=== PATIENT | male | born 1990 | race Caucasian/White ===

== ENCOUNTER 2019-04-27 20:23 | Emergency (ER) | payer OTHER ==
--- NOTE | 2019-04-27 20:32 | EDM.PDOC ---
ED HPI GENERAL MEDICAL PROBLEM - General Chief Complaint: Lower Extremity Injury/Pain Stated Complaint: LEFT LEG SPLINTER SWELLING AND INFECTED Time Seen by Provider: 04/27/19 20:32 - History of Present Illness INITIAL COMMENTS - FREE TEXT/NARRATIVE: 28-year-old male presents the emergency room with a infected splinter or something in his leg. Last night he had an infected hair on his left gustafson his tried to manipulate it and thought she saw metallic foreign body and there but could not get it out over the course of the day today he has had increased swelling redness and discomfort in this area. Left Leg Pain Score (Numeric/FACES): 4 - Related Data Allergies Allergy/AdvReac Type Severity Reaction Status Date / Time No Known Allergies Allergy Verified 04/27/19 20:32 Home Meds: Home Meds . [No Known Home Meds] 04/27/19 [History] Review of Systems - Review of Systems Review Of Systems: See Below Constitutional: Reports: No Symptoms Respiratory: Reports: No Symptoms Cardiovascular: Reports: No Symptoms GI/Abdominal: Reports: No Symptoms ED EXAM, GENERAL - Physical Exam Exam: See Below Exam Limited By: No Limitations General Appearance: Alert, No Apparent Distress Respiratory/Chest: No Respiratory Distress, Lungs Clear, Normal Breath Sounds Cardiovascular: Regular Rate, Rhythm, No Edema, No Murmur Extremities: Other (Nation of his left lower leg shows an area of redness mild swelling most consistent with a mild cellulitis the central area where the infected hair was no obvious foreign bodies are identified.) Course - Vital Signs Last Recorded V/S: Last Vital Signs Temp 36.2 C 04/27/19 20:28 Pulse 64 04/27/19 20:28 Resp 18 04/27/19 20:28 BP 141/96 H 04/27/19 20:28 Pulse Ox 98 04/27/19 20:28 - Orders/Labs/Meds Orders: Active Orders 24 hr Category Date Time Status Tibia Fibula Lt [CR] Stat Exams 04/27/19 20:48 Taken - Re-Assessments/Exams Free Text/Narrative Re-Assessment/Exam: 04/27/19 21:52 X-ray examination does not show any foreign bodies metallic or otherwise able to be seen on x-ray. Under magnified light I reviewed the situation cannot find a foreign body there is a hair in the tissue this was removed. Patient is started on Keflex 500 mg 4 times daily from the machine out in the waiting room #30 Departure - Departure Time of Disposition: 21:46 Disposition: DC/Tfer to SNF 03 Clinical Impression: Cellulitis - Discharge Information Instructions: Cellulitis, Adult, [id number] Referrals: PCP,None [Primary Care Provider] - Forms: ED Department Discharge Additional Instructions: Return to the emergency room with any questions problems or worsening symptoms. Given a prescription for cephalexin, this is an antibiotic, from the machine in the waiting room. Take 1 pill 4 times daily until all gone. Follow-up at the Hospital clinic ([phone]) or return to the emergency room in a couple of days if not improving sooner if getting worse Sepsis Event Note - Evaluation Sepsis Screening Result: No Definite Risk - Focused Exam Vital Signs: Vital Signs Temp Pulse Resp BP Pulse Ox 04/27/19 20:28 36.2 C 64 18 141/96 H 98 Date Exam was Performed: 04/27/19 Time Exam was Performed: 21:49 - My Orders Last 24 Hours: My Active Orders 04/27/19 20:48 Tibia Fibula Lt [CR] Stat - Assessment/Plan Last 24 Hours: My Active Orders 04/27/19 20:48 Tibia Fibula Lt [CR] Stat
--- NOTE | 2019-04-28 10:38 | CR ---
Left tibia and fibula: AP and lateral views of the left tibia and fibula were obtained. Comparison: No previous study. No fracture or other bony abnormality is seen. No discrete opaque foreign body is seen within the soft tissues. Impression: 1. Nothing acute seen on two-view left tibia and fibula study. Diagnostic code #1 This report was dictated in Mountain Standard Time
== END 2019-04-27 22:10 | disposition home or self-care (01) ==
LOC: JD.ED 20:23
DX: L03.116 Cellulitis of left lower limb (principal)
CPT/HCPCS: 73590-26-LT; 73590-LT; 99283; 99284-25

== ENCOUNTER 2020-07-11 14:15 | Emergency (ER) | payer BC, OTHER ==
[2020-07-11] MEDS ORDERED: Sodium Chloride 0.9% 10 ML Syringe FLUSH PRN (15:04)
[2020-07-11] MEDS ORDERED: Hyoscyamine 0.125 MG Tab.SL SL ONE (15:06)
--- NOTE | 2020-07-11 15:20 | EDM.PDOC ---
ED HPI GENERAL MEDICAL PROBLEM - General Chief Complaint: Abdominal Pain Stated Complaint: UPPER ABDOMINAL PAIN/NUMBNESS ALL OVER Time Seen by Provider: 07/11/20 14:58 Source of Information: Reports: Patient, RN Notes Reviewed History Limitations: Reports: No Limitations - History of Present Illness INITIAL COMMENTS - FREE TEXT/NARRATIVE: Pt is a 29 year old male presenting to the ER with c/o acute onset of RUQ abdominal/ rt lower rib pain and tingling of his fingers and lips. He also reports that when the pain was at its worst, he had difficulty swallowing and felt SOB. He states "It's not that I couldnt swallow, I just had to make an effort to swallow". He denies the feeling of swelling in his throat. Initially, the tingling in his fingers was on both sides, but it is now only on his left. Symptoms began about 2.5 hours ago and have been recurring intermittently since that time. He had eaten a small amount of macaroni and cheese approximately 30 minutes prior to the onset of symptoms. Right Upper Chest Pain Score (Numeric/FACES): 6 - Related Data Allergies Allergy/AdvReac Type Severity Reaction Status Date / Time No Known Allergies Allergy Verified 07/11/20 14:33 Home Meds: Home Meds Hyoscyamine Sulfate [Levsin-Sl] 0.25 mg SL Q6H PRN #10 tab.subl 07/11/20 [Rx] Past Medical History - Past Health History Medical/Surgical History: Denies Medical/Surgical History - Infectious Disease History Infectious Disease History: Reports: Chicken Pox - Past Surgical History HEENT Surgical History: Reports: Tonsillectomy Social & Family History - Family History Family Medical History: No Pertinent Family History Endocrine/Metabolic: Reports: Diabetes, type II - Tobacco Use Tobacco Use Status *Q: Current Every Day Tobacco User Years of Tobacco use: 19 Packs/Tins Daily: 1 Used Tobacco, but Quit: No Second Hand Smoke Exposure: Yes - Caffeine Use Caffeine Use: Reports: Coffee, Energy Drinks - Alcohol Use Days Per Week of Alcohol Use: 7 Number of Drinks Per Day: 1 Total Drinks Per Week: 7 - Recreational Drug Use Recreational Drug Use: No ED ROS GENERAL - Review of Systems Review Of Systems: See Below Constitutional: Reports: No Symptoms. Denies: Fever, Chills, Weakness HEENT: Reports: No Symptoms Respiratory: Reports: Shortness of Breath. Denies: Cough Cardiovascular: Reports: No Symptoms Endocrine: Reports: No Symptoms GI/Abdominal: Reports: Abdominal Pain (RUQ). Denies: Diarrhea, Nausea, Vomiting : Reports: No Symptoms Musculoskeletal: Reports: No Symptoms Skin: Reports: No Symptoms Neurological: Reports: Tingling (fingers and lips) Psychiatric: Reports: No Symptoms Hematologic/Lymphatic: Reports: No Symptoms Immunologic: Reports: No Symptoms ED EXAM, GI/ABD - Physical Exam Exam: See Below Exam Limited By: No Limitations General Appearance: Alert, WD/WN, No Apparent Distress Respiratory/Chest: No Respiratory Distress, Lungs Clear, Normal Breath Sounds, No Accessory Muscle Use, Chest Non-Tender Cardiovascular: Normal Peripheral Pulses, Regular Rate, Rhythm, No Edema, No Gallop, No JVD, No Murmur, No Rub GI/Abdominal Exam: Normal Bowel Sounds, Soft, No Organomegaly, No Distention, No Abnormal Bruit, No Mass, Pelvis Stable, Tender (RUQ). No: Guarding, Rigid Neurological: Alert, Oriented, CN II-XII Intact, Normal Cognition, Normal Gait, Normal Reflexes, No Motor/Sensory Deficits Psychiatric: Normal Affect, Normal Mood Skin Exam: Warm, Dry, Intact, Normal Color, No Rash #1 Interpretation EKG Date: 07/11/20 Time: 15:30 Rhythm: NSR [place]: Normal P-Wave: Present QRS: Normal ST-T: Normal QT: Normal Course - Vital Signs Last Recorded V/S: Last Vital Signs Temp 97.9 F 07/11/20 14:29 Pulse 72 07/11/20 14:29 Resp 20 07/11/20 14:29 BP 143/85 H 07/11/20 14:29 Pulse Ox 98 07/11/20 14:29 - Orders/Labs/Meds Orders: Active Orders 24 hr Category Date Time Status Peripheral IV Insertion Adult [OM.PC] Stat Oth 07/11/20 15:03 Ordered Labs: Laboratory Tests 07/11/20 07/11/20 07/11/20 Range/Units 14:45 14:45 14:45 WBC 5.92 (4.23-9.07) K/mm3 RBC 4.83 (4.63-6.08) M/mm3 Hgb 14.6 (13.7-17.5) gm/dl Hct 43.7 (40.1-51.0) % MCV 90.5 (79.0-92.2) fl MCH 30.2 (25.7-32.2) pg MCHC 33.4 (32.2-35.5) g/dl RDW Std Deviation 40.2 (35.1-43.9) fL Plt Count 312 (163-337) K/mm3 MPV 9.5 (9.4-12.3) fl Neut % (Auto) 67.2 (34.0-67.9) % Lymph % (Auto) 20.9 L (21.8-53.1) % Ellis % (Auto) 10.6 (5.3-12.2) % Eos % (Auto) 0.8 (0.8-7.0) Baso % (Auto) 0.3 (0.1-1.2) % Neut # (Auto) 3.97 (1.78-5.38) K/mm3 Lymph # (Auto) 1.24 L (1.32-3.57) K/mm3 Ellis # (Auto) 0.63 (0.30-0.82) K/mm3 Eos # (Auto) 0.05 (0.04-0.54) K/mm3 Baso # (Auto) 0.02 (0.01-0.08) K/mm3 D-Dimer, Quantitative < 0.19 L (0.19-0.50) mg/L Sodium 140 (136-145) mEq/L Potassium 4.2 (3.5-5.1) mEq/L Chloride 101 (98-107) mEq/L Carbon Dioxide 28 (21-32) mEq/L Anion Gap 15.2 H (5-15) BUN 11 (7-18) mg/dL Creatinine 1.0 (0.7-1.3) mg/dL Est Cr Clr Drug Dosing 96.33 mL/min Estimated GFR (MDRD) > 60 (>60) mL/min BUN/Creatinine Ratio 11.0 L (14-18) Glucose 94 (74-106) mg/dL Calcium 9.2 (8.5-10.1) mg/dL Total Bilirubin 1.0 (0.2-1.0) mg/dL AST 37 (15-37) U/L ALT 32 (16-63) U/L Alkaline Phosphatase 72 (46-116) U/L Troponin I < 0.017 (0.00-0.056) ng/mL C-Reactive Protein < 0.2 (<1.0) mg/dL Total Protein 7.9 (6.4-8.2) g/dl Albumin 4.5 (3.4-5.0) g/dl Globulin 3.4 gm/dL Albumin/Globulin Ratio 1.3 (1-2) Lipase 117 (73-393) U/L Meds: Medications Discontinued Medications Generic Name Dose Route Start Last Admin Trade Name Freq PRN Reason Stop Dose Admin Hyoscyamine 0.25 mg 07/11/20 15:06 07/11/20 15:30 Hyoscyamine 0.125 Mg Tab.Sl SL 07/11/20 15:07 0.25 mg ONETIME ONE Administration Sodium Chloride 10 ml 07/11/20 15:04 07/11/20 15:07 Sodium Chloride 0.9% 10 Ml Syringe FLUSH 10 ml ASDIRECTED PRN Administration Keep Vein Open - Re-Assessments/Exams Free Text/Narrative Re-Assessment/Exam: Patient is a 29-year-old male presenting to the emergency department with complaints of intermittent cramping sensation is right upper quadrant for the last 2-1/2 hours. When the pain hits, he also has tingling in his fingers and lips as well as an episode of shortness of breath with difficulty swallowing. Pain has slightly improved but is still there. He now feels tense and tingling in his left fingers, but his lips and right hand have resolved. On exam, patient has tenderness of the right upper quadrant and right lower rib cage. Exam is otherwise unremarkable. Suspect patient is suffering from biliary colic, however he is concerned that it could be cardiac in nature. I will have ordered CBC, CMP, CRP, lipase, troponin, D-dimer, EKG, chest x-ray, right upper quadrant ultrasound. I will give him Levsin 0.25 mg sublingual. 07/11/20 16:32 Patient's work-up was found to be grossly unremarkable. Urine, lipase, and D- dimer, are all normal. Chest x-ray shows no acute abnormalities. He ultrasound of the right upper quadrant shows no abnormalities. Patient states that the pain has resolved. He was likely experiencing spasms of the gallbladder. I will send him with a short prescription of Levsin could should the pain recur. Discussed that if the pain does recur, would recommend follow-up with a primary care provider the possibility of a HIDA scan. Discharge instructions as documented. Departure - Departure Time of Disposition: 16:34 Disposition: Home, Self-Care 01 Condition: Good Clinical Impression: Biliary colic - Discharge Information *PRESCRIPTION DRUG MONITORING PROGRAM REVIEWED*: No *COPY OF PRESCRIPTION DRUG MONITORING REPORT IN PATIENT YANA: No Prescriptions: Hyoscyamine Sulfate [Levsin-Sl] 0.25 mg SL Q6H PRN #10 tab.subl PRN Reason: Abdominal Pain Instructions: Biliary Colic, Adult Referrals: PCP,None [Primary Care Provider] - Forms: ED Department Discharge Additional Instructions: You were seen in the emergency department today for acute onset of right upper quadrant pain with tingling in your extremities and lips and difficulty swallowing. Work-up included blood work, EKG, chest x-ray, and an ultrasound of your gallbladder. Results of work-up were found to be overall normal. While in the ER, you received a dose of Levsin which treats biliary colic (gallbladder spasms). This did relieve your pain. You can send a prescription for Levsin, should your pain recur, recommend taking this. If you continue to have episodes of pain, recommend follow-up with your primary care doctor to discuss possibility of having a HIDA scan completed. Return to ER for any new or worsening symptoms of concern. Sepsis Event Note (ED) - Evaluation Sepsis Screening Result: No Definite Risk - Focused Exam Vital Signs: Vital Signs Temp Pulse Resp BP Pulse Ox 07/11/20 14:29 97.9 F 72 20 143/85 H 98 - My Orders Last 24 Hours: My Active Orders 07/11/20 15:03 Peripheral IV Insertion Adult [OM.PC] Stat - Assessment/Plan Last 24 Hours: My Active Orders 07/11/20 15:03 Peripheral IV Insertion Adult [OM.PC] Stat
--- NOTE | 2020-07-11 15:50 | US ---
Limited abdominal ultrasound: Multiple real-time images of the upper right abdomen were obtained. Comparison: No prior abdominal imaging is available. Pancreas appears within normal limits. Liver appears within normal limits. Gallbladder contains no shadowing gallstones. No gallbladder wall thickening or biliary duct dilatation is seen. Right kidney shows no hydronephrosis or mass and has a length of 10.3 cm. Main portal vein shows normal hepatopedal flow. Impression: 1. No abnormality is appreciated on right upper quadrant abdominal ultrasound. Diagnostic code #1
--- NOTE | 2020-07-11 15:51 | CR ---
Chest: 2 views of the chest were obtained. Comparison: No previous study. Heart size and mediastinum are normal. Lungs are clear with no acute parenchymal change. Slight scoliosis is noted with the spine. Mild scattered disc space narrowing is seen within the thoracic spine. Impression: 1. Nothing acute is seen on 2 view chest x-ray. Diagnostic code #2
== END 2020-07-11 17:17 | disposition home or self-care (01) ==
LOC: JD.ED 14:15
DX: K80.50 Calculus of bile duct without cholangitis or cholecystitis without obstruction (principal); Z72.0 Tobacco use
CPT/HCPCS: 36415; 71046; 76705; 80053; 83690; 84484; 85025; 85379; 86140; 93005; 99284; A9270; 93010

== ENCOUNTER 2020-08-20 20:19 | Emergency (ER) | payer BC ==
[2020-08-20] MEDS ORDERED: Proparacaine 0.5% Ophth Soln 15 ML Bottle ONE (20:26)
[2020-08-20] MEDS ORDERED: Proparacaine 0.5% Ophth Soln 15 ML Bottle EYELF ONE (20:31)
[2020-08-20] MEDS ORDERED: Fluorescein 1 MG Ophth Strip EYELF ONE (20:41)
[2020-08-20] MEDS ORDERED: Erythromycin Base 0.5% Ophth Oint 1 GM Tube EYELF STA (21:05)
--- NOTE | 2020-08-20 21:09 | EDM.PDOC ---
ED HPI GENERAL MEDICAL PROBLEM - General Chief Complaint: Eye Problems Stated Complaint: FB IN LEFT EYE Time Seen by Provider: 08/20/20 20:30 Source of Information: Reports: Patient, Family ( + daughter) History Limitations: Reports: No Limitations - History of Present Illness INITIAL COMMENTS - FREE TEXT/NARRATIVE: Mr. Al is a very pleasant 29-year-old gentleman who now presents the ED with a foreign body sensation to his left eye that began either 08/17/2020 or , 08/18/2020, when he was cleaning up his backyard. He states that there was lots of loose debris flying around, since it was windy. He does not pacifically remember anything getting into his eye, but states that he has since had a foreign body sensation, along with redness, tearing, and photophobia. He has irrigated his eye with water and used Visine, with no significant improvement. No prior left eye injury. Here in the ED, the patient is found to be hemodynamically stable, afebrile, saturating 95% on room air. Prior to Saturday or Saturday, the patient denies having a recent fever, chills, sore throat, ear pain, nasal or sinus congestion, cough, dyspnea, chest pain, pa lpitations, nausea, vomiting, constipation, diarrhea, abdominal pain, urinary symptoms, recent weight gain or weight loss, recent bloody bowel movements or black bowel movements, recent joint aches, headaches, or rashes. I reviewed the PMHx/PSHx/SocHx, which was reviewed with the patient by the RN. The patient's PCP is Dr. Kassandra Stern. Left Eye Pain Score (Numeric/FACES): 7 - Related Data Allergies Allergy/AdvReac Type Severity Reaction Status Date / Time No Known Allergies Allergy Verified 07/11/20 14:33 Home Meds: Home Meds Hyoscyamine Sulfate [Levsin-Sl] 0.25 mg SL Q6H PRN #10 tab.subl 07/11/20 [Rx] Past Medical History - Past Health History Medical/Surgical History: Denies Medical/Surgical History - Infectious Disease History Infectious Disease History: Reports: Chicken Pox - Past Surgical History HEENT Surgical History: Reports: Tonsillectomy Social & Family History - Family History Family Medical History: No Pertinent Family History Endocrine/Metabolic: Reports: Diabetes, type II - Tobacco Use Tobacco Use Status *Q: Current Every Day Tobacco User Years of Tobacco use: 7 Packs/Tins Daily: 1 - Caffeine Use Caffeine Use: Reports: Coffee, Energy Drinks, Soda - Recreational Drug Use Recreational Drug Use: No ED ROS GENERAL - Review of Systems Review Of Systems: Comprehensive ROS is negative, except as noted in HPI. ED EXAM GENERAL W FULL EYE - Physical Exam Exam: See Below Exam Limited By: No Limitations General Appearance: Alert, WD/WN, No Apparent Distress Eyelids: Bilateral: Normal Appearance Conjunctiva & Sclera: Right: Normal Appearance, Left: Injected Cornea Exam: Right: Normal Appearance, Left: Foreign Body (2:00 positon), Examined with Flourescein (No corneal abrasion) Extraocular Movements: Bilateral: Intact Pupils: Normal Accommodation Pupillary Size: Bilateral: 5 mm Pupillary Reaction: Bilateral: Brisk Anterior Chamber: Bilateral: Normal Appearance ED EYE w/ Add Procedure - Eye Procedure Alcaine Drops Administered: Yes Eye FB Removal: Removal w/ Needle (27 Ga, under slit lamp) Antibiotic Oinment/Drps Admin: Right Eye (erythromycin ointment) Course - Vital Signs Last Recorded V/S: Last Vital Signs Temp 36.5 C 08/20/20 20:41 Pulse 72 08/20/20 20:41 Resp 20 08/20/20 20:41 BP 126/73 08/20/20 20:41 Pulse Ox 95 08/20/20 20:41 - Orders/Labs/Meds Meds: Medications Discontinued Medications Generic Name Dose Route Start Last Admin Trade Name Dang PRGurwinder Reason Stop Dose Admin Erythromycin 1 gm 08/20/20 21:05 08/20/20 21:14 Erythromycin Base 0.5% Ophth Oint 1 Gm Tube EYELF 08/20/20 21:06 1 cm ONETIME STA Administration Fluorescein Sodium 1 mg 08/20/20 20:41 08/20/20 20:57 Fluorescein 1 Mg Ophth Strip EYELF 08/20/20 20:42 1 mg ONETIME ONE Administration Proparacaine HCl Confirm 08/20/20 20:26 08/20/20 20:57 Proparacaine 0.5% Ophth Soln 15 Ml Bottle Administered 08/20/20 20:27 Not Given Dose 15 ml .ROUTE .STK-MED ONE Proparacaine HCl 2 ml 08/20/20 20:31 08/20/20 20:38 Proparacaine 0.5% Ophth Soln 15 Ml Bottle EYELF 08/20/20 20:32 2 drop ONETIME ONE Administration - Re-Assessments/Exams Free Text/Narrative Re-Assessment/Exam: 08/20/20 21:06 As above, the patient has had a foreign body sensation, along with photophobia, since Saturday or , after something likely blew into his eye when he was cleaning up his yard. No corneal abrasion on fluorescein exam. On examination, a very tiny foreign body was visible with the naked eye at the 2 o'clock position, which appeared to be metallic-appearing under the slit-lamp. It was removed using a 27-gauge needle. Erythromycin ophthalmic ointment will be placed per his RN, and the patient given the tube. He can instill it up to 6 times a day, as needed. If he continues to have eye discomfort after few days, I would like him to follow-up with an eye doctor. Departure - Departure Time of Disposition: 21:07 Disposition: Home, Self-Care 01 Condition: Good Clinical Impression: Foreign body of left eye - Discharge Information *PRESCRIPTION DRUG MONITORING PROGRAM REVIEWED*: Not Applicable *COPY OF PRESCRIPTION DRUG MONITORING REPORT IN PATIENT YANA: Not Applicable Instructions: Eye Foreign Body, [id number] Referrals: Kassandra Stern MD [Primary Care Provider] - Forms: ED Department Discharge Additional Instructions: You were seen in the emergency room after developing a foreign body sensation with sensitivity to light either Saturday or , after something likely blew into your left eye. On examination, no corneal abrasion was found, but a metallic-appearing foreign body was found on your cornea. It was removed in the ER. Your nurse instilled erythromycin ointment into your eye, showed you how to do it, and gave you the tube. You may instill a 1 cm ribbon into the inside of your lower left eyelid up to 6 times a day, as needed for discomfort. If you are still having discomfort of your left eye after 3 days, please follow- up with an eye doctor. If any other problems, please do not hesitate to return to the ER. Sepsis Event Note (ED) - Evaluation Sepsis Screening Result: No Definite Risk - Focused Exam Vital Signs: Vital Signs Temp Pulse Resp BP Pulse Ox 08/20/20 20:41 36.5 C 72 20 126/73 95
== END 2020-08-20 21:18 | disposition home or self-care (01) ==
LOC: JD.ED 20:19
DX: T15.92XA Foreign body on external eye, part unspecified, left eye, initial encounter (principal); Z72.0 Tobacco use
CPT/HCPCS: 65222; 99283; A9270